=== PATIENT | female | born 2005 ===

== ENCOUNTER 2025-08-05 14:56 | Outpatient (AMB) | payer OTHER, SELFPAY ==
--- NOTE | 2025-08-05 14:59 | MHC.PC.OV ---
Vital Signs 08/05/25 15:08 Height 5 ft 4 in Weight 99 lb 6 oz BMI 17.1 BP 100/58 L Blood Pressure Location Rt brachial Position Sitting Respiration 14 Pulse 71 Pulse Source Pulse Oximeter Temp 98.6 F Temp Source Temporal Artery Scan Pulse Oximetry (%) 97 Oxygen Delivery Method Room Air Intake Visit Reasons: CPE/ nuerology Intake Note: Manda presents in the office today to establish care. 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: No Is last menstrual period known: Yes Last menstrual period: 07/22/25 Post menopausal: No Patient : No Allergies No Known Allergies Allergy (Verified 08/05/25 15:04) Tobacco use date assessed: 08/05/25 Dental Screening Dental Screen Date: 08/05/25 Did you have a dental visit in the last 12 months?: Yes Did you have a dental problem in the last 6 months where you did not have access to dental care?: Yes Was dental information given to patient?: Patient has dentist HPI HPI Comments History of Present Illness Details This is a 20-year-old female with a past medical history of seizures presenting to establish care. Name is alistair Morris. 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 She was diagnosed with epilepsy 2-3 years ago. She was having seizures in her sleep. She is followed by [place] Jeronimo [place] [facility] She is on Keppra 750 mg twice daily. Denies breakthrough seizures on current medication. Patient says she has been getting worse menstrual cramps within the past year and a half. The pain is sharp and stabbing. She prefers to avoid medications. She will drink warm tea or use a heating pad. Her periods are regular, they last 5-6 days, no heavy bleeding. LMP 07/24/2025. No known family history of gynecological problems or malignancy. Eye and dental exams are up to date. Wears glasses. Denies family history of colon cancer, breast or ovarian cancer. She runs. She follows a healthy diet. She is a nonsmoker. Patient says all vaccinations are up-to-date for school including tetanus and influenza. ROS: Constitutional: No unexplained weight loss, fever, chills, fatigue or night sweats. Eyes: No vision changes, blurry vision, double vision, eye pain, eye redness, eye discharge. ENT: No hearing loss, sneezing, congestion, runny nose or sore throat. Respiratory: No shortness of breath, cough or sputum production. Cardiovascular: No chest pain, chest pressure or chest discomfort. No palpitations or pedal edema. Gastrointestinal: No anorexia, nausea, vomiting or diarrhea. No abdominal pain or blood in stool. Genitourinary: No dysuria, hematuria, urinary frequency. Neurologic: No headache, dizziness, syncope, unilateral weakness, ataxia, numbness or tingling in the extremities. Musculoskeletal: No muscle pain, back pain, joint pain or swelling. Hematologic/Lymphatics: No bleeding or bruising. No painful lymph nodes. Endocrine: No cold or heat intolerance. No polyuria or polydipsia. Psychiatric: No depression or anxiety. Physical exam: Constitutional: Alert, in no distress. Head: Normocephalic. Eyes: Pupils are equal, round and reactive to light. Extraocular muscles intact. Ear, Nose and Throat: Canals clear. TMs normal. Normal nasal mucosa. No nasal discharge. No oral lesions. Neck: Supple, Full range of motion. No lymphadenopathy. No palpable thyroid masses. Respiratory: Clear to auscultation. Cardiovascular: S1 S2 regular. No murmurs. Gastrointestinal: Abdomen soft, non-tender, non-distended. Normal bowel sounds. No palpable masses. Neurologic: No focal neurological deficits. Symmetric patellar reflexes. Moves all extremities spontaneously. Skin: No rash Musculoskeletal: No gross deformities. Normal range of motion. Extremities: Warm and well perfused. No clubbing, cyanosis or edema. Psychiatric: Normal mood and affect [facility] Medical History (Updated 08/05/25 @ 15:42 by ANEESH Waite) Dysmenorrhea Routine physical examination Screening for cardiovascular condition Epilepsy Family History (Updated 08/05/25 @ 15:07 by Carine Merritt CMA) Father FH: mental illness Depression Substance abuse Alcoholism Social History (Updated 08/05/25 @ 15:07 by Carine Merritt CMA) Housing: Apartment Alcohol intake: current Patient Tobacco Use Status: Never used Tobacco e-Cigarette/Vaping Use: Never Used Second Hand Smoke Exposure: No service: No Current occupational status: student Current occupational exposures/hazards: No Cognitive needs: No Hearing needs: No Vision needs: No Female Reproductive History Menstrual Date of last menstrual period: 07/22/25 Physical exam (Primary Care) Vital Signs: Last Vital Signs Temp 98.6 F 08/05/25 15:08 Pulse 71 08/05/25 15:08 Resp 14 08/05/25 15:08 BP 100/58 L 08/05/25 15:08 Pulse Ox 97 08/05/25 15:08 Oxygen Delivery Method Room Air 08/05/25 15:08 BMI result Body Mass Index 17.1 Tobacco/Smoking Status: Tobacco use Status Tobacco use date assessed 08/05/25 08/05/25 15:11 Patient Tobacco Use Status Never used Tobacco 08/05/25 15:11 e-Cigarette/Vaping Use Never Used 08/05/25 15:11 Coding Level of Care Code New Pt Level 3 (14233) New Pt Prev Care 18-39yr([id number] Diagnoses Routine physical examination Z00.00 Nonintractable epilepsy without status epilepticus, unspecified epilepsy type G40.909 Epilepsy type: unspecified Intractability: not intractable Status epilepticus: without status epilepticus Screening for cardiovascular condition Z13.6 Dysmenorrhea N94.6 Assessment & Plan Assessment & Plan (1) Routine physical examination: Code(s): Z00.00 - Encounter for general adult medical examination without abnormal findings Category: Medical Plan: Patient is seen today for a routine physical. As part of this visit we reviewed the following issues, which are considered and essential part of preventative health in this age group: - Annual Partnership Development Manager exam - Blood pressure screening - Cholesterol screening - Osteoporosis prevention including calcium/vitamin D intake, weight bearing exercise & smoking cessation - Nutritional and exercise counseling - Counseling of injury prevention including fire prevention, smoke alarms and seat belt usage - Screening for depression - Prevention of and/or testing for infectious diseases - declined screening tests - Recommendations about immunizations - Recommendation of an eye exam - Screening for substance abuse (2) Epilepsy: Code(s): G40.909 - Epilepsy, unspecified, not intractable, without status epilepticus Category: Medical Qualifiers: Epilepsy type: unspecified Intractability: not intractable Status epilepticus: without status epilepticus Qualified Code(s): G40.909 - Epilepsy, unspecified, not intractable, without status epilepticus Plan: Continue Keppra per Neurology. (3) Screening for cardiovascular condition: Code(s): Z13.6 - Encounter for screening for cardiovascular disorders Category: Medical (4) Dysmenorrhea: Code(s): N94.6 - Dysmenorrhea, unspecified Category: Medical Plan: Declines medication. Dehydrated. Apply warm compresses needed. Check TSH and vitamin-D. Ordered pelvic/transvaginal ultrasound. Patient given contact number to call [facility] in [place] to schedule a new patient visit. Plan Schedule physical exam in 1 year. Orders: Orders US OB pelvic and transvaginal Today N94.6 - Dysmenorrhea, unspecified Levetiracetam Keppra Today G40.909 - Epilepsy, unspecified, not intractable, without status epilepticus, Z00.00 - Encounter for general adult medical examination without abnormal findings, Z13.6 - Encounter for screening for cardiovascular disorders Comprehensive Met. Panel Today G40.909 - Epilepsy, unspecified, not intractable, without status epilepticus, Z00.00 - Encounter for general adult medical examination without abnormal findings, Z13.6 - Encounter for screening for cardiovascular disorders Lipid Panel Today G40.909 - Epilepsy, unspecified, not intractable, without status epilepticus, Z00.00 - Encounter for general adult medical examination without abnormal findings, Z13.6 - Encounter for screening for cardiovascular disorders TSH reflex Free T4 Today G40.909 - Epilepsy, unspecified, not intractable, without status epilepticus, Z00.00 - Encounter for general adult medical examination without abnormal findings, Z13.6 - Encounter for screening for cardiovascular disorders Vitamin D 25-OH (D2 and D3) Today G40.909 - Epilepsy, unspecified, not intractable, without status epilepticus, Z00.00 - Encounter for general adult medical examination without abnormal findings, Z13.6 - Encounter for screening for cardiovascular disorders Complete Blood Count no Diff Today G40.909 - Epilepsy, unspecified, not intractable, without status epilepticus, Z00.00 - Encounter for general adult medical examination without abnormal findings, Z13.6 - Encounter for screening for cardiovascular disorders
[2025-08-05 15:08] VITALS: BP 100/58; PULSE 71; RESP 14; TEMP 37; O2SAT 97; BMI 17.1
== END 2025-08-05 15:33 | disposition home or self-care (01) ==
PROVIDERS: PCP Physician Assistant Medical; Visit Provider Physician Assistant Medical
DX: Z00.00 Encounter for general adult medical examination without abnormal findings (principal); G40.909 Epilepsy, unspecified, not intractable, without status epilepticus; N94.6 Dysmenorrhea, unspecified; Z13.6 Encounter for screening for cardiovascular disorders

== ENCOUNTER 2025-08-05 14:56 | Outpatient (REF) | payer OTHER, SELFPAY ==
[2025-08-05 18:24] LABS: Hematocrit 39.1 % (37.0-47.0); Hemoglobin 12.9 g/dl (12.0-16.0); Mean Corpuscular HGB Conc 33.0 g/dl (31.0-35.0); Mean Corpuscular Hemoglobin 29.5 pg (27.0-33.0); Mean Corpuscular Volume 89.5 fL (80.0-98.0); NRBC Abs Auto 0.000 X10*3/uL (0.0-0.012); NRBC Pct Auto 0.0 /100WBC (0.0-0.2); Platelet Count 312 X10*3/uL (160-400); Red Blood Count 4.37 X10*6/uL (4.20-5.50); White Blood Count 7.3 X10*3/uL (4.8-10.8)
[2025-08-05 19:02] LABS: Alanine Aminotransferase 12 U/L (0-31); Albumin Level 4.6 g/dL (3.5-5.0); Alkaline Phosphatase 52 U/L (39-117); Anion Gap 10 (12-20); Aspartate Amino Transferase 25 U/L (5-31); Blood Urea Nitrogen 16 mg/dL (9-16); Calcium 9.4 mg/dL (8.4-10.2); Carbon Dioxide 27 mmol/L (22-29); Chloride 108 mmol/L (96-108); Cholesterol 186 mg/dL (<200); Estimated Glomerular Filt Rate > 60; HDL Cholesterol 64 mg/dL (>40); Potassium 4.1 mmol/L (3.3-5.1); Sodium 141 mmol/L (135-145); Total Protein 7.6 g/dL (6.5-8.0); Triglycerides 57 mg/dL (<150)
[2025-08-07 19:33] LABS: Levetiracetam Keppra 8.4 mcg/mL (10.0-40.0)
[2025-08-09 06:28] LABS: Vitamin D 25-OH, D2 <4 ng/mL; Vitamin D 25-OH, D3 15 ng/mL; Vitamin D 25-OH, Total 15 ng/mL (30-100)
== END 2025-08-05 14:57 | disposition home or self-care (01) ==
LOC: HO.WFDLDS 14:56
PROVIDERS: PCP Physician Assistant Medical; Visit Provider Physician Assistant Medical
DX: Z00.00 Encounter for general adult medical examination without abnormal findings (principal); Z13.6 Encounter for screening for cardiovascular disorders; G40.909 Epilepsy, unspecified, not intractable, without status epilepticus
CPT/HCPCS: 36415; 80053; 80061; 80177; 82306; 84443; 85027